=== PATIENT | male | born 1975 | race Caucasian/White ===

== ENCOUNTER → 2018-09-05 | Outpatient (CLI) | payer MEDICAID, MEDICARE ==
[~2018-09-05] MED LIST: CATHETER FLUSH 10 ML SYR IV PRN
--- NOTE | 2018-09-05 13:05 | Diagnostic Imaging Report ---
INDICATION: Abnormal liver function test. TECHNIQUE: Patient was administered 5.1 mCi technetium 99m Choletec intravenously and imaging over the abdomen was performed. At one hour, patient ingested 8 ounces of Ensure and a gallbladder ejection fraction was calculated. FINDINGS: There is homogeneous uptake of activity by the liver. Prompt excretion of activity into the common duct and gallbladder is noted. There is normal passage of activity into the small bowel. There is appears to be some mild bile reflux into the stomach. Gallbladder ejection fraction is normal at 64%. IMPRESSION: 1. No evidence of cystic duct or common bile duct obstruction. 2. Normal gallbladder ejection fraction of 64%. 3. Mild bile reflux. Dictated by: Dictated on workstation # [id number]
== END ==
LOC: CARD 09:35
PROVIDERS: ATTEND Family Medicine
DX: R94.5 Abnormal results of liver function studies (principal)
CPT/HCPCS: 78227